=== PATIENT | male | born 1980 | race Caucasian/White ===

== ENCOUNTER 2017-05-16 11:46 | Inpatient (IN) ==
--- OUTSIDE RECORDS SUMMARY | 2017-05-16 11:55 | External Medical Summary ---
:1980 Author Organization [employer] Care Team Providers Name Role Phone Dorothy Escobar Provider Role Unavailable Allergies, Adverse Reactions, Alerts Substance Reaction Event Type aleve rash Non Drug Allergy penicillin rash Non Drug Allergy Problems Problem Type Condition Code Onset Dates Condition Status Assessment Sore throat J02.9 Active Assessment Right acute serous otitis media, H65.01 Active recurrence not specified Assessment Body aches R52 Active Medications Medication Code Code Instructions Start End Date Status Dosage System Date Azithromycin UTC 12994-17 250 MG Orally Feb 15, Feb 20, 2 tablets 46-09 Once a day 2015 2015 on the first day, then 1 tablet daily for 4 days BuPROPion HCl [facility] 83431-61 150 MG Orally Jan 09, 1 tablet (SR) 15- one a day for 2015 one week, then twice a day Procedures Procedure Coding System Code Date OFFICE VISIT, EST-LOW COMPLEXITY (15 MIN.) CPT-4 66489 Feb 16, 2016 Vital Signs Date/Time: Feb 16, 2016 Temperature 98.3 F Height 71 in Weight 331 lbs Blood Pressure Diastolic 84 mm Hg Blood Pressure Systolic 126 mm Hg Cardiac Monitoring Heart Rate 86 /min BMI 46.16 Index Respiratory Rate 16 /min Results No Known Results Summary Purpose [employer] Submission
[2017-05-16 12:09] VITALS: BMI 48.4
[2017-05-16] MEDS: LR 1,000 ML IV SCH ×3 (12:25→20:34)
--- NOTE | 2017-05-16 13:35 | Anesthesia Preoperative Report ---
Anesthesia Preoperative Record - Date and Time Date: 05/16/17 Preoperative Diagnosis: Ventral hernia repair K43.6 ventral hernia Proposed Procedure: robotic assisted ventral hernia NPO Since Date: 05/15/17 NPO Since Time: 23:00 Allergies/Adverse Reactions: Allergies Allergy/AdvReac Type Severity Reaction Status Date / Time naproxen Allergy Severe RASH Verified 05/16/17 12:46 Penicillins Allergy Unknown RASH Verified 05/16/17 12:46 - Vital Signs Vital Signs: Temperature 98.4 F 05/16/17 12:07 Pulse Rate 81 05/16/17 12:16 Respiratory Rate 15 05/16/17 12:07 Blood Pressure 149/79 H 05/16/17 12:07 Pulse Oximetry 96 05/16/17 12:07 Height and Weight: Height 1.8 m Weight 157.6 kg Body Mass Index 48.4 - Medications Inpatient Medications: Current Medications Ertapenem 1 g/ Sodium Chloride 100 mls @ 200 mls/hr IV PREOP ONE Stop: 05/16/17 16:09 Lactated Ringer's (Lactated Ringers) 1,000 mls @ 50 mls/hr IV .Q20H LEONARD Last Admin: 05/16/17 12:25 Dose: 50 mls/hr Lidocaine HCl (Xylocaine-Mpf 1% Vial) 1 mg ID O ONE Stop: 05/16/17 15:37 Last Admin: 05/16/17 12:33 Dose: Not Given Home Medications: Home Medications Medication Instructions Recorded Confirmed Type No known Home medications [No home 05/16/17 05/16/17 History meds] - Medical History Respiratory: Reports: Sleep Apnea (not diagnosed ) Cardiovascular: Reports: Hypertension (NO MEDS TAKEN) Gastrointestional: Reports: Morbid Obesity Neuro/Musculoskeletal: Reports: Other (POSS CARPAL TUNNEL ON LEFT HAND) - Surgical History HEENT Surgeries: Reports: Tonsillectomy GI Surgery/Treatments: Reports: Appendectomy, Hernia Repair (VENTRAL HERNIA) Musculoskeletal Surgery/Tx: Reports: Knee Arthroscopy (RIGHT) Anesthesia Reactions: None Hx Family Anesthesia Reaction: No - Social History Smoking Status: Former smoker - Pertinent Findings EKG: Sinus Rhythm - Physical Exam Respiratory Exam: Present: lungs clear, bilateral breath sounds equal Cardiovascular Exam: Present: regular rate and rhythm, no murmur - Airway Assessment Mallampati Score: II TMD: 3 Fingerbreadths Neck Extension: good Teeth: poor dentation Overall Assessment: may be difficult mask vent, may be difficult intubation Overall Assessment: casi dial - ASA ASA Score: 3 - Plan Anesthesia: General Inhalation Gases - Discussion Discussion: Discussed risks/options/alternatives of anesthesia and questions answered. Patient consents. Nursing pain assessment noted. Attestation Statement: Prior to the delivery of any anesthetic medication, I examined the patient, developed the plan, obtained the patient's consent and discussed the risk and benefits of the procedure with the patient/guardian. - Additional Information Seen by Anesthesia: Yes
[2017-05-16] MEDS ORDERED: KETAMINE 500 MG/10 ML INJECTION ONE (13:43)
[2017-05-16] MEDS ORDERED: FentaNYL 100 MCG/2 ML INJECTION ONE ×2 (13:43→17:43)
[2017-05-16] MEDS ORDERED: ROCURONIUM 50 MG/5 ML INJECTION IVP ONE ×2 (13:45→16:54)
[2017-05-16] MEDS ORDERED: PROPOFOL 20 ML ONE ×2 (13:45→18:15)
[2017-05-16] MEDS ORDERED: LIDOCAINE 1% (10mg/ml) 2mL INJ PF SDV ID ONE (15:36)
[2017-05-16] MEDS ORDERED: ERTAPENEM 1 G in NS 100 ML IV ONE (15:40)
[2017-05-16] MEDS ORDERED: BUPIVACAINE 0.25%/EPI 1:200,000 30ml SDV ID ONE (17:15)
[2017-05-16] MEDS ORDERED: ONDANSETRON 4 MG/2 ML INJECTION ONE (17:33)
[2017-05-16] MEDS ORDERED: SUGAMMADEX 200mg/2ml INJECTION IVP ONE (17:33)
[2017-05-16] MEDS ORDERED: DiphenhydrAMINE 50 MG/ML INJECTION ONE (17:33)
--- NOTE | 2017-05-16 18:25 | General Surgery Procedure Note ---
Date of Procedure: 05/16/17 Surgeon: Yadi Sagger Maker: Romaine Shin APRN Postoperative Diagnosis: Ventral Hernia Procedure: Robotic assisted ventral hernia repair with mesh Estimated Blood Loss: See Anesthesia Record. Pathology: none sent
[2017-05-16] MEDS ORDERED: MORPHINE SULFATE 10 MG/ML VIAL ONE (18:30)
[2017-05-16] MEDS ORDERED: MORPHINE SULFATE 10 MG/ML VIAL IVP PRN (18:55)
[2017-05-16] MEDS ORDERED: DiphenhydrAMINE 50 MG/ML INJECTION IVP PRN ×2 (18:55→20:21)
[2017-05-16] MEDS ORDERED: ONDANSETRON 4 MG/2 ML INJECTION IVP PRN ×2 (18:55→20:21)
--- NOTE | 2017-05-16 19:21 | Anesthesia Postoperative Note ---
- Date and Time Date: 05/16/17 Time: 19:21 - Status Patient Participated in Evaluation: Patient Participated in Person Vital Signs: Temperature 98.5 F 05/16/17 18:49 Pulse Rate 104 H 05/16/17 19:10 Respiratory Rate 19 05/16/17 19:10 Blood Pressure 148/76 H 05/16/17 19:10 Pulse Oximetry 97 05/16/17 19:10 Respiratory Function: Airway Patent Cardiovascular Function: Regular Pulse EKG: Sinus Rhythm Mental Status: Alert and Oriented Pain Intensity: 5 Hydration: IV Infusing Complications During Recover: None Apparent - Follow-Up Instructions Instructions: Per Surgeon
[2017-05-16] MEDS ORDERED: MORPHINE SULFATE 4mg INJECTION IVP PRN (20:21)
[2017-05-16] MEDS ORDERED: METOCLOPRAMIDE 10mg/2ml INJECTION IVP PRN (20:21)
[2017-05-16] MEDS: KETOROLAC 30 MG/ML INJECTION IVP PRN (20:33)
[2017-05-17] MEDS: HYDROCODONE/APAP 5mg/325mg TABLET PO PRN ×2 (00:55→07:44)
[2017-05-17] MEDS: KETOROLAC 30 MG/ML INJECTION IVP PRN (03:00)
--- NOTE | 2017-05-17 10:08 | General Surgery Progress Note ---
Subjective Patient reports: still having pain (Pain is mid abdoment at prior hernia site, worse with coughing, pain rating 7/10. Minimal discomfort at trocar sites. Binder is very helpful for abd pain but is hot. Did not get Morphine during the night, states she asked about more pain medication and was told Toradol and [place] was all that she could give. States Toradol does not help and [place] just barely takes the edge off.), tolerating a regular diet (eating full large meals without difficulty), voiding w/o difficulty, flatus, no bowel movement, shortness of breath (was on c-pap all night, he states he will check into getting a sleep study when he gets home. He was on O2 3Lt at start of day shift , is now (10 am) on 1 lt and sat 91-92%) - Vital Signs Last Vital Signs Temp 98.6 F 05/17/17 09:26 Pulse 88 05/17/17 09:26 Resp 18 05/17/17 09:26 BP 144/81 H 05/17/17 09:26 Pulse Ox 94 05/17/17 09:26 - Laboratory Result Diagrams: 05/17/17 12:18 - Abnormal Exam General: mild distress (regarding abd pain at hernia site) Respiratory: rales (bilateral bases) Abdominal: obese - Normal Exam General: awake, alert, oriented Cardiovascular: regular rate Abdominal: appropriately tender, incision(s) (early ecchymosis at trocar and hernia sites (where the mesh "tail" pulled through the abd wall)) Psychiatric: normal affect (but anxious regarding mid abd pain.) Neurological: CN 2-12 grossly intact Assessment and Plan (1) Ventral hernia without obstruction or gangrene Current Visit: Yes Status: Resolved (2) Aspiration pneumonia due to saliva Current Visit: Yes Status: Suspected Qualifiers: Laterality: bilateral (3) Atelectasis Current Visit: Yes Status: Acute (4) Postoperative hypoxia Current Visit: Yes Status: Acute (5) Postoperative abdominal pain Current Visit: Yes Status: Acute (6) Sleep apnea in adult Current Visit: Yes Status: Suspected (7) Obesity, morbid (more than 100 lbs over ideal weight or BMI > 40) Current Visit: Yes Status: Chronic Plan: Pain not well controlled with [place], will switch to Percocet 7.5. MiraLAX daily. Rough wet cough and rales bilateral bases, will get CXR and breathing treatment , binder loosened. Bi-pap, IS and Acapella ordered last night, anticipating hypoxia. He plans on seeking sleep study after discharge. At this point does not seem interested in weight loss. If improves over the next 6 hours, he might be able to be discharged today. ADDENDUM: CXR after breathing treatment this am COMPARISON: August 15, 2015 FINDINGS: New airspace consolidation in both lower lobes. Lungs are hypoinflated. No pneumothorax or definite pleural effusion. Heart size and mediastinal contours are stable. Pulmonary vascularity is grossly normal. Impression: Hypoinflation with bibasilar airspace disease most likely representing atelectasis. Developing pneumonia cannot be excluded and continued radiographic follow-up is recommended. Based on cough, and above CXR, scheduled breathing treatment TID and prn ordered. Encouraged ambulation, IS, Acapella. Will spend the night for repeat CXR in am related to possible developing aspiration pneumonia vs atelectasis related to his hypoxia newly requiring oxygen, unless he can be weaned from oxygen and the WBC normal. ADDENDUM #2 : WBC 12.3 He was able to be weaned off oxygen while awake, but with rest/sleep dropped to 88%. Results of over night pulse ox can be sent to PCP and/or sleep medicine. Will discuss above thoughts with Dr. Machado before final decision regarding discharge. ADDENDUM #3: 7:45 pm Now needing 2Lt oxygen to maintain sat of barely 90%. He had a couple hours on room air in the afternoon when alert and awake. Given the difficulty in maintaining sats above 90 upon induction for surgery yesterday, and the suctioning that was needed when he was waking up from anesthesia, plus the productive cough now post op that he did not have pre-op, together with rales in the bases and CXR indicating possible pneumonia, There is suspicion of aspiration pneumonia. Given the clinical background and the CXR, we will keep him over night and check CBC and CXR in the am. Will hold off on ABX for now, we don't want to give him ABX if he does not need them, and if his WBC goes down tomorrow, it would be harder to determine if he had atelectasis and just an elevation in WBC as stress response, or if the decrease was truly due to ABx. Hospital Course Summary Disclaimer: The visit summary below is not to be considered part of the above Progress Note. Hospital Course: Pain not well controlled with [place], will switch to Percocet 7.5. MiraLAX daily. Rough wet cough and rales bilateral bases, will get CXR and breathing treatment , binder loosened. He plans on seeking sleep study after discharge. At this point does not seem interested in weight loss. If improves over the next 6 hours, he might be able to be discharged today.
[2017-05-17] MEDS: ALBUTEROL 2.5mg/3ml (0.083%) NEB AEROSOL PRN ×2 (10:09→18:20)
[2017-05-17] MEDS: POLYETHYL GLYCOL 3350 17gm PACKET PO SCH (10:33)
--- NOTE | 2017-05-17 11:09 | XRay Report ---
INDICATION: post op wheezing, productive cough PROCEDURE: CHEST 2-VIEWS UPRIGHT (PA & LAT) Encounter: Initial COMPARISON: August 15, 2015 FINDINGS: New airspace consolidation in both lower lobes. Lungs are hypoinflated. No pneumothorax or definite pleural effusion. Heart size and mediastinal contours are stable. Pulmonary vascularity is grossly normal. Impression: Hypoinflation with bibasilar airspace disease most likely representing atelectasis. Developing pneumonia cannot be excluded and continued radiographic follow-up is recommended. .
[2017-05-17] MEDS: OXYCODONE/APAP 7.5 MG/325 MG TABLET PO PRN ×3 (13:08→22:43)
--- NOTE | 2017-05-17 15:04 | Operative Note ---
DATE OF SERVICE 05/16/2017 SURGEON Ken Grullon MD PREOPERATIVE DIAGNOSIS Recurrent ventral hernia. POSTOPERATIVE DIAGNOSIS Incarcerated recurrent ventral hernia. ANESTHESIA General endotracheal. EBL/FLUIDS Please see chart. BRIEF HISTORY/INDICATIONS Mr. Clark is a 37-year-old gentleman who recently presented to my office as a result of onset of epigastric abdominal pain. Patient had presented to the emergency room and had undergone a CT scan that revealed evidence for an incisional hernia containing omentum. There was no evidence for strangulation or evidence for bowel obstruction. The patient, however, did have a prior history of presenting with a strangulated small bowel obstruction as a result of a prior ventral hernia. He did undergo a small bowel resection and repair of his ventral hernia. Unfortunately, the patient had a recurrence of his hernia which has become symptomatic in nature. As a result of the above indications it was recommended to the patient that he undergo repeat surgical intervention/robotic-assisted laparoscopic ventral herniorrhaphy with incorporation of mesh. Patient presents today to undergo this procedure. For completeness please refer to notes included in the patient's chart. FINDINGS Upon laparoscopy the patient was found to have a fascial defect located within the midline location. The patient's fascial defect was on the order about 2-3 cm in diameter and contained a significant amount of incarcerated omentum. This omentum was able be reduced. Primary fascial closure was subsequently performed followed by incorporation of a piece of Ventralex mesh so that it covered the defect by several centimeters circumferentially once it had been closed primarily. Otherwise, the small bowel, omentum, colon, liver edge which was visualized were within normal limits. NARRATIVE OF PROCEDURE After informed consent was obtained the patient was brought to the operative suite and placed on the table in supine fashion. Patient subsequently underwent establishment of a general anesthetic. The patient did desaturate fairly quickly during the process of intubation. The patient did take a few moments to stabilize. Once Anesthesia felt that the patient had been stabilized, attention was then directed towards his abdomen. His abdomen was prepped and draped in sterile fashion. Formal time-out was then completed. 0.25% Marcaine with epinephrine was injected just beneath the left subcostal margin. A 4-5 mm incision was made through the area of analgesia. Veress needle was then induced through the small incision into the peritoneal cavity. Pneumoperitoneum was established to a patient pressure of 15 mmHg utilizing carbon dioxide. The operative bed was then slightly flexed and the patient was rotated slightly towards his right. A point midway between the left anterior iliac spine and the left subcostal margin was then injected with 0.25% Marcaine with epinephrine along the mid anterior axillary line. A 2-cm incision was made overlying the of analgesia. A 12-mm camera port was then placed overlying an 8-mm camera and placed through the incision and subsequently advanced under direct visualization through the underlying fascial layers and into the peritoneal cavity. Camera was then removed. Trocar was removed. A 12 -mm was then replaced through the camera port. Next, an additional 8-mm port was then placed in the left low left lower quadrant as well as an additional 10- mm assist port through within the left upper quadrant. Each port site was preinjected with 0.25% Marcaine with epinephrine and placed under direct visualization. The abdominal cavity was explored via the laparoscope. Findings were as noted above. Robot was then docked perpendicular to the patient's right. I then proceeded to go to the console. The patient was found to have a considerable amount of omentum incarcerated through a small fascial defect within the upper mid abdomen. This fascial defect was located at the midline location. A fair amount of time was spent reducing this incarcerated omentum. The omentum was able to be completely dissected out of the fascial defect/ hernia sac. Next, a #1 V-Loc suture was then placed through the assist port within the left upper quadrant. The fascial defect was then closed primarily in a running fashion. Initially, the fascial defect was closed in a "left-to- right fashion" and then subsequently oversewn in a "[id number]-[id number]-[id number] fashion" completely. Suture was tightened sequentially, resulting in nice imbrication of the fascial edges. Next, I had my paraprofessional education assistant then place a Ventralex ST hernia patch through the assist port within the left upper quadrant. The tail portions of the mesh had been transected. Vicryl suture was placed along the midportion of the Ventralex mesh. The paraprofessional education assistant then placed a laparoscopic needle passer through the anterior abdominal wall overlying the location of the fascial defect. The suture passer was placed through the midportion of the primary closure. The Vicryl was then grasped and retracted through the anterior abdominal wall until the large Ventralex ST hernia patch was taut against the anterior abdominal wall. The hernia patch was placed in such a fashion that it covered the closure of the fascial defect by several centimeters circumferentially. The mesh was then imbricated to the anterior abdominal wall in a running fashion utilizing a 2-0 V-Loc suture. Nallen that were utilized were removed. Instrument, sponge and needle counts were performed and found to be correct. Prior areas of dissection were inspected and found be hemostatic in nature. Next, the robot was then undocked. Camera was then placed within the assist port within the left upper quadrant. Camera port was then removed and the fascial opening at the camera port was closed in a [id number] fashion with 0-Vicryl laparoscopically utilizing a laparoscopic suture passer. Camera port was then replaced through this figure- of-eight suture and the camera was then replaced once again within the camera port. Attention was then focused to the assist port within the left upper quadrant. The assist port was then removed and this fascial opening was also closed laparoscopically in a [id number]-it-[id number] fashion with 0-Vicryl utilizing a laparoscopic suture passer. Suture was then tied securely, resulting in a nice closure of the port site at the fascial level. The remaining 8-mm port was then removed. Camera port was then removed once the pneumoperitoneum had been completely released. Previously placed [id number] suture of 0-Vicryl was then tied securely, resulting in imbrication of the fascia. All skin incisions were closed in a subcuticular fashion with 4-0 Monocryl. The patient is in the process of awakening from his anesthetic and will be sent back to the recovery room once deemed in stable condition. RUDOLPH
[2017-05-17] MEDS: IBUPROFEN 600 MG TABLET PO PRN ×2 (15:12→21:07)
[2017-05-18] MEDS: OXYCODONE/APAP 7.5 MG/325 MG TABLET PO PRN ×4 (03:47→18:09)
[2017-05-18] MEDS: IBUPROFEN 600 MG TABLET PO PRN ×2 (06:10→23:15)
[2017-05-18] MEDS: ALBUTEROL 2.5mg/3ml (0.083%) NEB AEROSOL PRN (06:55)
[2017-05-18] MEDS ORDERED: Bisacodyl EC TAB 5 MG TABLET PO ONE (08:12)
--- NOTE | 2017-05-18 08:23 | General Surgery Progress Note ---
Subjective Patient reports: feels better, pain is less (Motrin 600 mg Q6 has been helpful, and he states the Percoet 7.5 is much better at pain relief than [place]. He currently is "past due" for another Percocet, but feels that his abd pain is about a 4/10 and will hold off on the Percocet.), tolerating a regular diet ( had pancakes and syrup for breakfast), voiding w/o difficulty, no bowel movement (but states he feels like he will have a BM soon.), shortness of breath (with productive cough. RT Summary indicates Deepest desat felisa of 81% with total desats 11 (1.3 hr). ) - Vital Signs Last Vital Signs Temp 96.8 F 05/18/17 04:00 Pulse 81 05/18/17 04:00 Resp 22 05/18/17 06:55 BP 145/71 H 05/18/17 04:00 Pulse Ox 94 05/18/17 06:55 - Laboratory Result Diagrams: 05/18/17 08:36 - Abnormal Exam Respiratory: wheezes (faint wheeze, much much improved from yesterday), other ( Remains on O2 this morningRT eval reports sats fallint to 87% with ambulation of only 120 ft, O2 started at 2L and sat initially continued to fall to a low of 85% on 2L. After returing to bed appx. 4 min before dips and peaks calmed with pt. remaining at 91-92% on 2L. ) Cardiovascular: other (brief tachycardia during oximetry testing, RT notes HR 101 at one point.) Abdominal: obese - Normal Exam General: awake, alert, oriented Cardiovascular: regular rate Abdominal: appropriately tender, no guarding, incision(s) (early ecchymosis, no sign of infection) Psychiatric: normal affect Assessment and Plan (1) Ventral hernia without obstruction or gangrene Current Visit: Yes Status: Resolved (2) Aspiration pneumonia due to saliva Current Visit: Yes Status: Suspected Qualifiers: Laterality: bilateral (3) Atelectasis Current Visit: Yes Status: Acute (4) Postoperative hypoxia Current Visit: Yes Status: Acute (5) Postoperative abdominal pain Current Visit: Yes Status: Acute (6) Sleep apnea in adult Current Visit: Yes Status: Suspected (7) Obesity, morbid (more than 100 lbs over ideal weight or BMI > 40) Current Visit: Yes Status: Chronic Plan: WBC up a little to 13.1 (12.3 yesterday) Still has productive cough, sputum culture ordered. Sats dropping during the night at with ambulation, RT has done a good assessment , see RT NOTE. Pain is better controlled with Percocet and Motrin. Reviewer for IP called me last evening and given suspicion of possible aspiration pneumonia in addition to previously undiagnosed sleep apnea and morbid obesity, she recommended IP status about 5pm yesterday. CM is checking on fischer of Levaquin 750 PO, as Don's insurance does not cover OP drugs very well. Above info reported to Dr. Aden, will ask hospitalist team to assist with evaluation and options. Hospital Course Summary Disclaimer: The visit summary below is not to be considered part of the above Progress Note. Hospital Course: 05/17/2017 POD #1 Pain not well controlled with [place], will switch to Percocet 7.5. MiraLAX daily. Rough wet cough and rales bilateral bases, will get CXR and breathing treatment , binder loosened. He plans on seeking sleep study after discharge. At this point does not seem interested in weight loss. Continued to need O2 most of the day, CXR suggestive of either atelectasis or pneumonia. CBC showed WBC 12.3 . 05/18/2016 POD #2 WBC up a little to 13.1 (12.3 yesterday) Still has productive cough, sputum culture ordered. Sats dropping during the night at with ambulation, RT has done a good assessment , see RT NOTE. Pain is better controlled with Percocet and Motrin. Reviewer for IP called me last evening and given suspicion of possible aspiration pneumonia in addition to previously undiagnosed sleep apnea and morbid obesity, she recommended IP status about 5pm yesterday. CM is checking on fischer of Levaquin 750 PO, as Don's insurance does not cover OP drugs very well. Above info reported to Dr. Aden, will ask hospitalist team to assist with evaluation and options.
[2017-05-18] MEDS: POLYETHYL GLYCOL 3350 17gm PACKET PO SCH (09:12)
--- NOTE | 2017-05-18 11:44 | Consult Note ---
Consult Information - Data of Consult Consult date: 05/18/17 Requesting Physician: Ken Grullon MD Primary Care Provider: Cindy Bravo APRN Family Provider: Cindy Bravo APRN - Consult Narrative Reason for consult: Acute respiratory failure with hypoxia, s/p hernia repair History of present illness: Bashir Clark is a pleasant 37-year-old patient of Dr. Cindy Bravo who underwent elective robotic-assisted laparoscopic ventral herniorrhaphy with mesh placement on 05/16/[address] Grullon. Since his surgery, he has had acute respiratory failure with hypoxia and tachypnea requiring oxygen supplementation at 2L. He reports that prior to his surgery, he and all of his family members had battled a "cold" with mild cough and congestion off and on over the past couple of months. He also admits to self-diagnosed sleep apnea but does not use oxygen or CPAP at home. Surgery reports that he was a very difficult intubation in light of his morbid obesity, placing him at significant risk for respiratory complications. CXR was obtained on 05/16/17 and revealed hypoinflation with bibasilar airspace disease which could represent atelectasis or pneumonia. Labs on 05/17/17 revealed leukocytosis with WBC at 12.3. Ambulatory oximetry revealed hypoxia with oximetry as low as 85% on room air, which improved with 2L NC and rest. Due to his persistent respiratory failure with hypoxia and leukocytosis, the hospitalist service was consulted for further evaluation and medical management. On exam, he is seen while sitting in his recliner with his at the bedside. He reports that he is feeling a little better today. He states that his cough has become more productive with yellow-greenish sputum but remains afebrile without chills. He is currently breathing easily on room air with a reported oximetry of 90% but is noted to become more dyspneic with mild conversational dyspnea with exertion. He has a wet, productive cough and lung sounds reveal course breath sounds with decreased air movement in the right lower lung. He denies any other complaint or concerns. His pain is well controlled. Appetite is good but no bowel movement since surgery, though he admits to passing gas. Past Medical History Patient Stated Medical History Hypertension - no current medications. Sleep apnea - self reported. Carpal tunnel, left. History of substance abuse with methamphetamine and marijuana. Morbid obesity with BMI >45. Poor dentition. Former smoker. Surgical History: Appendectomy - ~1987. Right knee scope - ~1997. Umbilical hernia repair - 05/24/2013. Ventral hernia repair - 05/16/17, Dr. Grullon. Family History Updates: Mother - alive, age 67 - DM, hypertension, CAD with stent placement. Father - alive, age 74 - estranged, possible hypertension. - Social History Smoking status: Former smoker (quit 1 years ago) Packs per day: 1 Packs-years: 15 Substance use type: former substance user (quit 2 years ago - marijuana and methamphetamine) Alcohol intake: former Alcohol intake frequency: former alcohol drinker (quit 5 years ago) Housing: house Household members: spouse, children Current occupational status: disabled Does patient use chewing tobacco?: No Current residence: Apartment/Private Home Social history: PCP - Dr. Cindy Bravo. Surg - Dr. Grullon. Review of Systems All systems PM: 10-point ROS was reviewed, no additional remarkable complaints except - Constitutional Constitutional: Absent: chills, fever(s), headache(s), weakness - EENMT Eyes: Absent: diplopia, photophobia Ears: Absent: ear pain Balance: Absent: falling to one side Nose: Absent: nosebleeds Mouth/Throat: Present: caries, dry mouth. Absent: sore throat, changes in swallowing EENMT Comments: poor dentition. - Cardiovascular Cardiovascular: Present: dyspnea on exertion, orthopnea. Absent: chest pain, palpitations, syncope Vascular: Absent: pallor of an extermity, pedal edema - Respiratory Respiratory: Present: cough, dyspnea, dyspnea on exertion, chest congestion, excessive phlegm production. Absent: hemoptysis, pain on inspiration - Gastrointestinal Gastrointestinal: Present: abdominal pain (secondary to recent surgery.), constipation. Absent: melena, nausea, vomiting - Genitourinary Genitourinary: Absent: dysuria, flank pain, hematuria - Musculoskeletal Musculoskeletal: Absent: abnormal gait, deformity - Integumentary/Breasts Integumentary: Absent: rash - Neurological Neurological: Absent: abnormal speech, confusion, dizziness, focal weakness, headache(s), weakness - Psychiatric Psychiatric: Absent: anxiety, depression - Endocrine Endocrine: Absent: heat intolerance, palpitations - Hematologic/Lymphatic Hematologic/Lymphatic: Absent: easy bruising - Allergic/Immunologic Allergic/Immunologic: Absent: seasonal rhinorrhea Medications Allergies Allergy/AdvReac Type Severity Reaction Status Date / Time naproxen Allergy Severe RASH Verified 05/18/17 19:50 Penicillins Allergy Unknown RASH Verified 05/18/17 19:50 Exam Vital Signs: Temperature 98.2 F 05/18/17 08:56 Pulse Rate 104 H 05/18/17 08:56 Respiratory Rate 24 05/18/17 08:56 Blood Pressure 145/79 H 05/18/17 08:56 Pulse Oximetry 92 05/18/17 08:56 Telemetry Rhythm: Sinus Tachycardia Height/Weight/BMI: Height 5 ft 11 in Weight 347 lb 0.121 oz Body Mass Index 48.4 Comments: Sitting in recliner with at bedside. - Constitutional Present: no acute distress, well nourished, well developed, morbidly obese, cooperative - Routine HEENT Exam Head: Present: normocephalic, atraumatic Eye: Present: PERRL. Absent: conjunctival icterus ENT: Present: mucous membranes moist Comments: very poor dentition. - Routine Neck Exam Present: supple, full ROM, trachea midline - Routine Chest/Breast/Axilla Exam Chest wall: Absent: pacemaker - Routine Respiratory Exam Absent: wheezes Comments: diminished and course breath sounds to right lower lung; wet, productive cough on exam; dyspnea noted with minimal exertion. - Routine Cardiovascular Exam Present: RRR, S1, S2 - Routine Abdominal Exam Present: soft. Absent: rebound, guarding Comments: hypoactive bowel sounds; mild tenderness with palpation. - Routine Extremities Exam Present: edema, non tender, full ROM, pulses intact - Routine Back/Spine/Pelvis Exam Back/Spine: Present: full ROM. Absent: vertebral tenderness - Routine Skin Exam Present: dry, warm. Absent: jaundice Comments: afebrile. - Routine Neurological Exam Present: alert, oriented X3, CN II-XII intact, moving all extremities, hearing grossly intact, normal speech. Absent: facial asymmetry - Routine Psychiatric Exam Present: tactile hallucinations, cooperative, good insight, good judgment Results - Labs CBC & Chem 7: 05/18/17 08:36 05/18/17 08:36 Microbiology Results: Microbiology 05/18/17 09:27 Sputum, Expectorated Sputum Culture - Preliminary Culture Initiated - Results Pending Assessment and Plan (1) Status post hernia repair Current visit: Yes Status: Acute (2) Acute respiratory failure with hypoxia and hypercapnia Current visit: Yes Status: Acute (3) Obesity, morbid (more than 100 lbs over ideal weight or BMI > 40) Current visit: Yes Status: Chronic Assessment and Plan: Assessment S/P ventral hernia repair - 05/16/17, Dr. Grullon. Acute post-op respiratory failure with hypoxia and hypercapnia. Aspiration pneumonia - NEW ADMISSION. Severe sepsis as indicated by leukocytosis, tachycardia, tachypnea and hypoxia. Leukocytosis. Post-op abdominal pain. Hypertension - no current medications. Sleep apnea - self reported. Carpal tunnel, left. History of substance abuse with methamphetamine and marijuana. Morbid obesity with BMI >45. Poor dentition. Former smoker. Plan - 05/18/17 Hospitalist service consulted for medical management and further evaluation of acute post-op respiratory failure with hypoxia and hypercapnia. Patient meeting severe sepsis criteria. Will obtain blood cultures x 2 and serial lactates. Initiate Levaquin 750mg IV daily for suspected aspiration pneumonia. Monitor WBC as it is trending up - currently 13.1. Initial exam reveals course lung sounds in right lower lung. Ambulatory oximetry revealed hypoxia on room air as low as 85% and improved with 2L O2 and rest. CXR on 05/16 concerning for bibasilar atelectasis vs. pneumonia. Sputum culture obtained with results pending. Continue to monitor culture results. Continue supplemental oxygen to maintain SAO2 >90%, weaning as able. Continue to encourage incentive spirometry for pulmonary toileting. DuoNeb treatments for dyspnea. Mucinex for mucolytic effect. Ricola and tessalon perles for cough PRN. Continue to monitor closely on telemetry with continuous pulse oximetry. Blood pressure noted to be elevated. History of hypertension without current blood pressure medications. GFR stable. In light of diabetes, will initiate lisinopril 10mg daily and continue to monitor closely. SCDs for DVT prophylaxis. Encourage ambulation with assistance as able. Upon discharge, patient's care will be returned to his PCP, Dr. Bravo. Appreciate the opportunity to assist in the care provided. 05/18/2017-9 PM-Dr. Bull-I reviewed this chart, the patient history, and the MANAGER OF TAX's/PA's documented findings as above. We discussed and formulated the assessment and plan as above with the additions below. I saw the patient this afternoon in his room. He did have a productive cough. He states he's had green yellow phlegm. This started after surgery. He apparently had a difficult intubation and required suctioning and bagging before intubation and then required suctioning after he was extubated. We were consulted today for hypoxia. He is requiring 1-2 L of oxygen. ABG reveals a pH of 7.45, PCO2 38, PO2 of 65 on 1 L. Lactate was normal 2. Influenza A and B are negative. Rhinovirus is negative. He had an overnight oximetry last night and requires 2 L of oxygen. This afternoon he states he's feeling sweaty and has had a temperature of around 100.5. He's had some mild tachycardia. He is not orthostatic. He states he does snore loudly at night and sometimes wakes up gasping for air. He thinks he likely has sleep apnea. He has never been tested for sleep apnea. He rates his pain in his abdomen postoperatively to be about a 3 currently In general this is a well-developed, overweight male in no acute distress. He is mildly diaphoretic. HEENT reveals sclerae to be anicteric and pupils are equal. Oropharynx is moist. Neck is supple. Chest reveals some mild rhonchi in the bases. Cardiovascular reveals a regular rate and rhythm. Abdomen is soft with some tenderness to palpation. Bowel sounds are present. Extremities are free of edema. I have viewed the chest x-ray and he does appear to have bibasilar infiltrates. Impression Acute hypoxic respiratory failure Bibasilar infiltrates with concerns for aspiration just pre-and post extubation. Possible aspiration pneumonia. Possible severe sepsis with normal lactates. Probable obstructive sleep apnea. Morbid obesity. Postop day 2 status post hernia repair Plan The patient was given IV fluids. He was not orthostatic. Lactates were normal. IV fluids were then discontinued. The patient was started on Levaquin 750 mg once daily and clindamycin 450 mg by mouth 3 times a day for pneumonia with possible aspiration. We'll await sputum culture results. At cultures were obtained and are pending. We'll continue breathing treatments and encourage incentive spirometer. ABG does not show CO2 retention. The patient will likely need O2 at 2 L at night at discharge. He will need a formal sleep evaluation with a bolt man after discharge. DVT Prophylaxis: SCD's Resuscitation Status: Full Code - Time spent with patient Time with patient PN: 70 minutes - Physician Narrative Physician: Tala Bull MD Narrative: Date: 05/18/17 Time: 1119 Hospital Course Summary Disclaimer: The visit summary below is not to be considered part of the above Progress Note. Hospital Course: Pain not well controlled with [place], will switch to Percocet 7.5. MiraLAX daily. Rough wet cough and rales bilateral bases, will get CXR and breathing treatment , binder loosened. He plans on seeking sleep study after discharge. At this point does not seem interested in weight loss. If improves over the next 6 hours, he might be able to be discharged today. Plan - 05/18/17 Hospitalist service consulted for medical management and further evaluation of acute post-op respiratory failure with hypoxia and hypercapnia. Patient meeting severe sepsis criteria. Will obtain blood cultures x 2 and serial lactates. Initiate Levaquin 750mg IV daily for suspected aspiration pneumonia. Monitor WBC as it is trending up - currently 13.1. Initial exam reveals course lung sounds in right lower lung. Ambulatory oximetry revealed hypoxia on room air as low as 85% and improved with 2L O2 and rest. CXR on 05/16 concerning for bibasilar atelectasis vs. pneumonia. Sputum culture obtained with results pending. Continue to monitor culture results. Continue supplemental oxygen to maintain SAO2 >90%, weaning as able. Continue to encourage incentive spirometry for pulmonary toileting. DuoNeb treatments for dyspnea. Mucinex for mucolytic effect. Ricola and tessalon perles for cough PRN. Continue to monitor closely on telemetry with continuous pulse oximetry. Blood pressure noted to be elevated. History of hypertension without current blood pressure medications. GFR stable. In light of diabetes, will initiate lisinopril 10mg daily and continue to monitor closely. SCDs for DVT prophalyxis. Encourage ambulation with assistance as able. Upon discharge, patient's care will be returned to his PCP, Dr. Bravo. Appreciate the opportunity to assist in the care provided. Sepsis Assessment - Evaluation SIRS Criteria: pulse > 90 beats/minute, WBC > 12,000, RR > 20
--- NOTE | 2017-05-18 11:49 | Progress Note ---
DATE OF VISIT 05/17/2017 REASON FOR VISIT Covering surgical care for Dr. Grullon. SUBJECTIVE Bashir was having some hypoxemia and sats were dropping below 90 while he was sleeping. He is able to maintain oxygen saturations while awake and ambulating but not with sleep. He is tolerating his diet. OBJECTIVE ABDOMEN: Soft, appropriately tender. His incisions are clean, dry and intact. IMPRESSION 1. Postop day #1 status post ventral hernia repair. 2. Acute postoperative hypoxia. 3. Atelectasis - I think this is more likely than aspiration pneumonia. 4. Obesity with BMI of 48.4. PLAN 1. I encouraged incentive spirometer use. 2. I do think that with the hypoxemia he should be observed overnight. This is only due to atelectasis. Hopefully his O2 requirements can be weaned. 3. If he continues to have hypoxia tomorrow then he may need initiation of antibiotics but I am hopeful that this is simply atelectasis as opposed to any aspiration pneumonia. See electronic documentation by Romaine Shin APRN. I do agree with her documentation. RUDOLPH
[2017-05-18] MEDS ORDERED: ALBUTEROL/IPRATROPIUM 2.5mg-0.5mg/3ml NEB AEROSOL PRN (12:08)
[2017-05-18] MEDS ORDERED: MENTHOL COUGH DROPS (RICOLA) MM PRN (12:09)
[2017-05-18] MEDS ORDERED: BENZONATATE 200 MG CAPSULE PO PRN (12:09)
[2017-05-18] MEDS ORDERED: NS 1,000 ML IV SCH (12:15)
[2017-05-18] MEDS: LISINOPRIL 10 MG TABLET PO SCH (13:22)
[2017-05-18] MEDS: GUAIFENESIN LA 600 MG TABLET PO SCH ×2 (13:24→20:21)
[2017-05-18] MEDS: LEVOFLOXACIN PB 750 MG/150 ML BAG IV SCH (13:25)
[2017-05-18] MEDS: SALINE FLUSH 10ml SYRINGE IV PRN (13:29)
--- NOTE | 2017-05-18 15:07 | XRay Report ---
Indication: atelectasis vs pneumonia PROCEDURE: XR chest 2V: Encounter: Initial Comparison: 05/17/2017 Findings: There is persistent bibasilar pulmonary opacity in the posterior inferior dependent aspect of both lung bases likely representing atelectasis although superimposed pneumonia cannot completely be excluded. No definite pleural effusion. Heart size is normal. Impression: Relatively stable bibasilar atelectasis and/or pneumonia, similar to prior exam without definite pleural effusion. .
[2017-05-18] MEDS: LACTOBACILLUS (15B cfu) CAPSULE PO SCH (18:08)
[2017-05-18] MEDS: CLINDAMYCIN 150 MG CAPSULE PO SCH ×2 (18:08→20:21)
[2017-05-19] MEDS: OXYCODONE/APAP 7.5 MG/325 MG TABLET PO PRN ×3 (00:42→18:09)
[2017-05-19] MEDS: ALBUTEROL/IPRATROPIUM 2.5mg-0.5mg/3ml NEB AEROSOL SCH ×6 (04:46→20:45)
[2017-05-19] MEDS: IBUPROFEN 600 MG TABLET PO PRN ×2 (08:41→20:00)
[2017-05-19] MEDS: LISINOPRIL 10 MG TABLET PO SCH (08:42)
[2017-05-19] MEDS: POLYETHYL GLYCOL 3350 17gm PACKET PO SCH (08:42)
[2017-05-19] MEDS: LACTOBACILLUS (15B cfu) CAPSULE PO SCH ×3 (08:45→17:32)
[2017-05-19] MEDS: CLINDAMYCIN 150 MG CAPSULE PO SCH ×3 (08:45→20:00)
[2017-05-19] MEDS: GUAIFENESIN LA 600 MG TABLET PO SCH ×2 (08:47→19:59)
[2017-05-19] MEDS: SALINE FLUSH 10ml SYRINGE IV PRN ×2 (08:48→12:03)
--- NOTE | 2017-05-19 10:16 | Progress Note ---
- Date 05/19/17 Subjective: Bashir is seen today in follow up. Reports that SOA is slightly better. His main c/o is still no BM. He has taken laxatives w/o effect, but feels things are "moving." +Flatus. Eating well. No N/V. Trying to use non-narcotic meds for pain, but is not able to bear down with BM due to pain. Is also avoiding the abdominal binder due to concerns for respiratory limitations. We discussed that he may need to use the binder intermittently in order to provide support/pain control with trips to the bathroom. He denies any other concerns. Reports no LE edema, does not feel that he is swollen. Mild increase in pain at incisions with attempts to decrease narcotic meds. Objective Vital signs: Temperature 96.8 F 05/19/17 07:24 Pulse Rate 101 H 05/19/17 07:24 Respiratory Rate 24 05/19/17 07:24 Blood Pressure 153/73 H 05/19/17 07:24 Pulse Oximetry 93 05/19/17 07:24 Height/Weight/BMI: Height 1.8 m Weight 160.8 kg Body Mass Index 48.4 - Constitutional Present: no acute distress, well nourished, well developed, morbidly obese, cooperative - Routine HEENT Exam Head: Present: normocephalic, atraumatic Eye: Present: EOMI, PERRL ENT: Absent: dentition normal - Routine Respiratory Exam Present: decreased breath sounds, diminished air movement (Bases, very mild splinting in bases. No crackles or wheezes. ). Absent: respiratory distress - Routine Cardiovascular Exam Present: RRR, S1, S2, no murmur - Routine Abdominal Exam Present: soft, tenderness, distended, surgical scars. Absent: normoactive bowel sounds (Hypoactive BS. ), firm, rigid - Routine Extremities Exam Present: no edema (Very trace edema if any at all. ), non tender, pulses intact. Absent: calf tenderness, Omero's sign - Routine Musculoskeletal Exam Musculoskeletal: Present: no clubbing or cyanosis, normal strength. Absent: joint swelling, limited range of motion - Routine Skin Exam Present: intact, dry, warm - Routine Neurological Exam Present: alert, oriented X3, CN II-XII intact, moving all extremities - Routine Psychiatric Exam Present: normal affect, normal thought process, cooperative, good insight, good judgment Results - Labs CBC & Chem 7: 05/19/17 04:26 05/19/17 04:26 Microbiology Results: Microbiology 05/18/17 09:27 Sputum, Expectorated Gram Stain - Final 05/18/17 09:27 Sputum, Expectorated Sputum Culture - Preliminary No Growth After 1 Day 05/18/17 12:27 Peripheral/Iv Start Blood Culture - Preliminary Culture Initiated - Results Pending 05/18/17 12:30 Peripheral/Iv Start Blood Culture - Preliminary Culture Initiated - Results Pending Cultures reviewed by me. - ABG Interpretation ABG results: 05/18/17 17:00 ABG pH 7.450 ABG pCO2 38 ABG pO2 65 L ABG HCO3 26 ABG Total CO2 27.6 H ABG O2 Saturation 93.0 L ABG Base Excess 2.4 H - Imaging and Cardiology Chest x-ray Status: image reviewed by me Additional comments: Impression: Relatively stable bibasilar atelectasis and/or pneumonia, similar to prior exam without definite pleural effusion. . Assessment and Plan (1) Acute respiratory failure with hypoxia and hypercapnia Current visit: Yes Status: Acute (2) Status post hernia repair Current visit: Yes Status: Acute (3) Obesity, morbid (more than 100 lbs over ideal weight or BMI > 40) Current visit: Yes Status: Chronic Assessment and Plan: Assessment S/P ventral hernia repair - 05/16/17, Dr. Grullon. Acute post-op respiratory failure with hypoxia and hypercapnia. Aspiration pneumonia - NEW ADMISSION. Severe sepsis as indicated by leukocytosis, tachycardia, tachypnea and hypoxia. Leukocytosis. Post-op abdominal pain. Hypertension - no current medications. Sleep apnea - self reported. Carpal tunnel, left. History of substance abuse with methamphetamine and marijuana. Morbid obesity with BMI >45. Poor dentition. Former smoker. Plan - 05/19/17 Some improvement in pulmonary status. Continue Levaquin/Clindamycin. Continue nebs, O2. He will need overnoc oximetry prior to dismissal and outpatient f/u for possible sleep apnea. Flu A/B is negative. Continue I.S. Continue lisinopril for HTN. Monitor, may need to add a diuretic if continues. PRN laxatives pre surgery team. Consider adding LMWH to SCDs given morbid obesity. Repeat labs in AM. DVT Prophylaxis: SCD's Resuscitation Status: Full Code - Physician Narrative Physician: Tala Bull MD Narrative: Date: 05/19/17 Time: 4:30 PM-I reviewed this chart, the patient history, and the OILER HELPER's/PA's documented findings as above. We discussed and formulated the assessment and plan as above with the additions below.-Dr. Bull Patient was seen this afternoon in his room accompanied by his and son. He states he's feeling a lot better. He has been off oxygen all day. He did need 2 L of oxygen last night. He has cough with productive phlegm but it is lessening. He has had no fevers or chills. He denies any pain. He is eating and drinking well. He has flatus but no bowel movement yet. He is urinating well. On exam he is alert and in no acute distress. Chest reveals decreased breath sounds throughout. Cardiac vascular reveals a regular rate and rhythm. Abdomen is soft, obese, nontender with positive bowel sounds. Extremities are free of edema. Lab is reviewed and reveals CBC and basic metabolic profile to be essentially normal. I was reviewing his chart for possible discharge and noticed he had a 9 beat run of nonsustained V. tach at 1:30 yesterday morning. Impression and plan Regarding aspiration pneumonia, I think the patient is improving. Continue Levaquin and clindamycin. Will change Levaquin to oral. Regarding hypoxia, the patient required oxygen last night but has not been hypoxic during the day today.-He will likely need home O2 at 2 L per nasal cannula at night. He likely has obstructive sleep apnea. ABG yesterday did not show CO2 retention. Regarding 9 beat run of nonsustained V. tach-we'll place on telemetry. Check magnesium and TSH. We'll check an echocardiogram. We'll consult Dr. Swenson. I did notify him today and asked if he would see the patient tomorrow. Hospital Course Summary Disclaimer: The visit summary below is not to be considered part of the above Progress Note. Hospital Course: Pain not well controlled with [place], will switch to Percocet 7.5. MiraLAX daily. Rough wet cough and rales bilateral bases, will get CXR and breathing treatment , binder loosened. He plans on seeking sleep study after discharge. At this point does not seem interested in weight loss. If improves over the next 6 hours, he might be able to be discharged today. Plan - 05/18/17 Hospitalist service consulted for medical management and further evaluation of acute post-op respiratory failure with hypoxia and hypercapnia. Patient meeting severe sepsis criteria. Will obtain blood cultures x 2 and serial lactates. Initiate Levaquin 750mg IV daily for suspected aspiration pneumonia. Monitor WBC as it is trending up - currently 13.1. Initial exam reveals course lung sounds in right lower lung. Ambulatory oximetry revealed hypoxia on room air as low as 85% and improved with 2L O2 and rest. CXR on 05/16 concerning for bibasilar atelectasis vs. pneumonia. Sputum culture obtained with results pending. Continue to monitor culture results. Continue supplemental oxygen to maintain SAO2 >90%, weaning as able. Continue to encourage incentive spirometry for pulmonary toileting. DuoNeb treatments for dyspnea. Mucinex for mucolytic effect. Ricola and tessalon perles for cough PRN. Continue to monitor closely on telemetry with continuous pulse oximetry. Blood pressure noted to be elevated. History of hypertension without current blood pressure medications. GFR stable. In light of diabetes, will initiate lisinopril 10mg daily and continue to monitor closely. SCDs for DVT prophalyxis. Encourage ambulation with assistance as able. Upon discharge, patient's care will be returned to his PCP, Dr. Bravo. Appreciate the opportunity to assist in the care provided. 05/18/2017-9 PM-Dr. Bull-I reviewed this chart, the patient history, and the OILER HELPER's/PA's documented findings as above. We discussed and formulated the assessment and plan as above with the additions below. I saw the patient this afternoon in his room. He did have a productive cough. He states he's had green yellow phlegm. This started after surgery. He apparently had a difficult intubation and required suctioning and bagging before intubation and then required suctioning after he was extubated. We were consulted today for hypoxia. He is requiring 1-2 L of oxygen. ABG reveals a pH of 7.45, PCO2 38, PO2 of 65 on 1 L. Lactate was normal 2. Influenza A and B are negative. Rhinovirus is negative. He had an overnight oximetry last night and requires 2 L of oxygen. This afternoon he states he's feeling sweaty and has had a temperature of around 100.5. He's had some mild tachycardia. He is not orthostatic. He states he does snore loudly at night and sometimes wakes up gasping for air. He thinks he likely has sleep apnea. He has never been tested for sleep apnea. He rates his pain in his abdomen postoperatively to be about a 3 currently In general this is a well-developed, overweight male in no acute distress. He is mildly diaphoretic. HEENT reveals sclerae to be anicteric and pupils are equal. Oropharynx is moist. Neck is supple. Chest reveals some mild rhonchi in the bases. Cardiovascular reveals a regular rate and rhythm. Abdomen is soft with some tenderness to palpation. Bowel sounds are present. Extremities are free of edema. I have viewed the chest x-ray and he does appear to have bibasilar infiltrates. Impression Acute hypoxic respiratory failure Bibasilar infiltrates with concerns for aspiration just pre-and post extubation. Possible aspiration pneumonia. Possible severe sepsis with normal lactates. Probable obstructive sleep apnea. Morbid obesity. Postop day 2 status post hernia repair Plan The patient was given IV fluids. He was not orthostatic. Lactates were normal. IV fluids were then discontinued. The patient was started on Levaquin 750 mg once daily and clindamycin 450 mg by mouth 3 times a day for pneumonia with possible aspiration. We'll await sputum culture results. At cultures were obtained and are pending. We'll continue breathing treatments and encourage incentive spirometer. ABG does not show CO2 retention. The patient will likely need O2 at 2 L at night at discharge. He will need a formal sleep evaluation with a manager pediatric after discharge. Plan - 05/19/17 Some improvement in pulmonary status. Continue Levaquin/Clindamycin. Continue nebs, O2. He will need overnoc oximetry prior to dismissal and outpatient f/u for possible sleep apnea. Flu A/B is negative. Continue I.S. Continue lisinopril for HTN. Monitor, may need to add a diuretic if continues. PRN laxatives pre surgery team. Consider adding LMWH to SCDs given morbid obesity. Repeat labs in AM.
[2017-05-19] MEDS: LEVOFLOXACIN PB 750 MG/150 ML BAG IV SCH (12:03)
[2017-05-19] MEDS ORDERED: METOCLOPRAMIDE 10mg/2ml INJECTION IVP PRN (16:37)
[2017-05-20] MEDS: OXYCODONE/APAP 7.5 MG/325 MG TABLET PO PRN ×3 (00:14→15:40)
[2017-05-20] MEDS: ALBUTEROL/IPRATROPIUM 2.5mg-0.5mg/3ml NEB AEROSOL SCH ×3 (06:39→15:23)
[2017-05-20] MEDS: IBUPROFEN 600 MG TABLET PO PRN ×2 (06:48→13:08)
[2017-05-20] MEDS: POLYETHYL GLYCOL 3350 17gm PACKET PO SCH (08:19)
[2017-05-20] MEDS: CLINDAMYCIN 150 MG CAPSULE PO SCH ×2 (08:20→15:37)
[2017-05-20] MEDS: LISINOPRIL 10 MG TABLET PO SCH (08:20)
[2017-05-20] MEDS: GUAIFENESIN LA 600 MG TABLET PO SCH (08:20)
[2017-05-20] MEDS: LACTOBACILLUS (15B cfu) CAPSULE PO SCH ×2 (08:21→11:48)
--- NOTE | 2017-05-20 08:42 | General Surgery Progress Note ---
Subjective Narrative: Eating a large regular breakfast. states that since he has been on Bi-Pap she has noticed he does not nod off to sleep during the day any time he sits down. He indicates he feels that he has more energy than he did prior to surgery. Still coughing, but not as much. Has not had a BM since surgery, in spite of Miralax daily and Dulcolax last week. He ordered prune juice for breakfast, will add Milk of Magnesia this am. He is not wearing the abd binder, and surgical pain is "tolerable." There was a short run of V=tach yesterday, hospitalist has asked Dr. Swenson to see him today. - Vital Signs Last Vital Signs Temp 97.0 F 05/20/17 07:52 Pulse 101 H 05/20/17 08:07 Resp 18 05/20/17 07:52 BP 138/71 05/20/17 07:52 Pulse Ox 94 05/20/17 07:52 - Laboratory Result Diagrams: 05/20/17 05:10 05/20/17 05:10 - Microbiogy Microbiology 05/18/17 09:27 Sputum, Expectorated Gram Stain - Final 05/18/17 09:27 Sputum, Expectorated Sputum Culture - Preliminary 05/18/17 12:27 Peripheral/Iv Start Blood Culture - Preliminary No Growth After 1 Day 05/18/17 12:30 Peripheral/Iv Start Blood Culture - Preliminary No Growth After 1 Day - Abnormal Exam Respiratory: other (still on 1.5 L wtih sat 94%, nursing will try to wean him down again.) Additional Abnormal Findings: 05/18/17 07:38 - Respiratory Therapy by Niko Sparks Acct Num: [id number] : 1980 Patient Age: 37 Overnight Oximetry Note This pt. amb from room towards west end of "[facility]" [place] on room air with pt. amb appx. 120 ft. before spo2 fell to 87%, 02 was started at 2 l/m as pt. amb return to room with spo2 initially continuing to fall to low of 85% before rebounding to 89% on 2 l/m when he arrived in his room. After returning to bed appx. 4 min before dips and peaks calmed with pt. remaining at 91<92% on 2 l/m. The printout of this walk is the first 5<15 minutes of his overnight oximetry tracing. In conversation with this pt., he stated he knew he needed to have a sleep study done. On placing pt. to CPAP then BIPAP, his dial is an obstacle to use of a full face mask. The time he did wear the cpap was during use of a nasal mask. If this pt. had apneas during this oximetry, they are difficult to ascertain and the need for 02 to keep spo2 >90% may appear to blunt some of any saw tooth patterns that may be seen on this oximetry. - Normal Exam General: awake, alert, oriented, no acute distress Cardiovascular: regular rate Abdominal: appropriately tender, no guarding, incision(s) (CDI, DermaBond glue in tact) Psychiatric: normal affect Assessment and Plan (1) Ventral hernia without obstruction or gangrene Current Visit: Yes Status: Resolved (2) Aspiration pneumonia due to saliva Current Visit: Yes Status: Suspected Qualifiers: Laterality: bilateral (3) Atelectasis Current Visit: Yes Status: Acute (4) Postoperative hypoxia Current Visit: Yes Status: Acute (5) Postoperative abdominal pain Current Visit: Yes Status: Acute (6) Sleep apnea in adult Current Visit: Yes Status: Suspected (7) Obesity, morbid (more than 100 lbs over ideal weight or BMI > 40) Current Visit: Yes Status: Chronic (8) Ventricular tachycardia seen on classroom monitor Current Visit: Yes Status: Acute (9) Acute respiratory failure with hypoxia and hypercapnia Current Visit: Yes Status: Acute Plan: Hypoxia continues, may need home O2. Currently on IV Levaquin and Cleocin, will change to PO for discharge at hospitalist discretion. Cardiac arrhythmia yesterday, Dr. Swenson has been consulted. Surgically he is doing well, except no BM yet in spite of Mirilax daily and dulcolax last week. Will get a little more aggressive with bowel stimulation today. May need to repeat Over Night Oximetry to document most current respiratory status after being on ABX and Bi=Pap several days. 05/18 RT note below. 05/18/17 07:38 - Respiratory Therapy by Niko Sparks Acct Num: [id number] : 1980 Patient Age: 37 Overnight Oximetry Note This pt. amb from room towards west end of "[facility]" hallway on room air with ptLance mckenzie appx. 120 ft. before spo2 fell to 87%, 02 was started at 2 l/m as pt. magaly return to room with spo2 initially continuing to fall to low of 85% before rebounding to 89% on 2 l/m when he arrived in his room. After returning to bed appx. 4 min before dips and peaks calmed with pt. remaining at 91<92% on 2 l/m. The printout of this walk is the first 5<15 minutes of his overnight oximetry tracing. In conversation with this pt., he stated he knew he needed to have a sleep study done. On placing pt. to CPAP then BIPAP, his dial is an obstacle to use of a full face mask. The time he did wear the cpap was during use of a nasal mask. If this pt. had apneas during this oximetry, they are difficult to ascertain and the need for 02 to keep spo2 >90% may appear to blunt some of any saw tooth patterns that may be seen on this oximetry. Hospital Course Summary Disclaimer: The visit summary below is not to be considered part of the above Progress Note. Hospital Course: Pain not well controlled with [place], will switch to Percocet 7.5. MiraLAX daily. Rough wet cough and rales bilateral bases, will get CXR and breathing treatment , binder loosened. He plans on seeking sleep study after discharge. At this point does not seem interested in weight loss. If improves over the next 6 hours, he might be able to be discharged today. Plan - 05/18/17 Hospitalist service consulted for medical management and further evaluation of acute post-op respiratory failure with hypoxia and hypercapnia. Patient meeting severe sepsis criteria. Will obtain blood cultures x 2 and serial lactates. Initiate Levaquin 750mg IV daily for suspected aspiration pneumonia. Monitor WBC as it is trending up - currently 13.1. Initial exam reveals course lung sounds in right lower lung. Ambulatory oximetry revealed hypoxia on room air as low as 85% and improved with 2L O2 and rest. CXR on 05/16 concerning for bibasilar atelectasis vs. pneumonia. Sputum culture obtained with results pending. Continue to monitor culture results. Continue supplemental oxygen to maintain SAO2 >90%, weaning as able. Continue to encourage incentive spirometry for pulmonary toileting. DuoNeb treatments for dyspnea. Mucinex for mucolytic effect. Ricola and tessalon perles for cough PRN. Continue to monitor closely on telemetry with continuous pulse oximetry. Blood pressure noted to be elevated. History of hypertension without current blood pressure medications. GFR stable. In light of diabetes, will initiate lisinopril 10mg daily and continue to monitor closely. SCDs for DVT prophalyxis. Encourage ambulation with assistance as able. Upon discharge, patient's care will be returned to his PCP, Dr. Bravo. Appreciate the opportunity to assist in the care provided. 05/18/2017-9 PM-Dr. Bull-I reviewed this chart, the patient history, and the DIRECTOR PACKAGING's/PA's documented findings as above. We discussed and formulated the assessment and plan as above with the additions below. I saw the patient this afternoon in his room. He did have a productive cough. He states he's had green yellow phlegm. This started after surgery. He apparently had a difficult intubation and required suctioning and bagging before intubation and then required suctioning after he was extubated. We were consulted today for hypoxia. He is requiring 1-2 L of oxygen. ABG reveals a pH of 7.45, PCO2 38, PO2 of 65 on 1 L. Lactate was normal 2. Influenza A and B are negative. Rhinovirus is negative. He had an overnight oximetry last night and requires 2 L of oxygen. This afternoon he states he's feeling sweaty and has had a temperature of around 100.5. He's had some mild tachycardia. He is not orthostatic. He states he does snore loudly at night and sometimes wakes up gasping for air. He thinks he likely has sleep apnea. He has never been tested for sleep apnea. He rates his pain in his abdomen postoperatively to be about a 3 currently In general this is a well-developed, overweight male in no acute distress. He is mildly diaphoretic. HEENT reveals sclerae to be anicteric and pupils are equal. Oropharynx is moist. Neck is supple. Chest reveals some mild rhonchi in the bases. Cardiovascular reveals a regular rate and rhythm. Abdomen is soft with some tenderness to palpation. Bowel sounds are present. Extremities are free of edema. I have viewed the chest x-ray and he does appear to have bibasilar infiltrates. Impression Acute hypoxic respiratory failure Bibasilar infiltrates with concerns for aspiration just pre-and post extubation. Possible aspiration pneumonia. Possible severe sepsis with normal lactates. Probable obstructive sleep apnea. Morbid obesity. Postop day 2 status post hernia repair Plan The patient was given IV fluids. He was not orthostatic. Lactates were normal. IV fluids were then discontinued. The patient was started on Levaquin 750 mg once daily and clindamycin 450 mg by mouth 3 times a day for pneumonia with possible aspiration. We'll await sputum culture results. At cultures were obtained and are pending. We'll continue breathing treatments and encourage incentive spirometer. ABG does not show CO2 retention. The patient will likely need O2 at 2 L at night at discharge. He will need a formal sleep evaluation with a surg nurse after discharge. Plan - 05/19/17 Some improvement in pulmonary status. Continue Levaquin/Clindamycin. Continue nebs, O2. He will need overnoc oximetry prior to dismissal and outpatient f/u for possible sleep apnea. Flu A/B is negative. Continue I.S. Continue lisinopril for HTN. Monitor, may need to add a diuretic if continues. PRN laxatives pre surgery team. Consider adding LMWH to SCDs given morbid obesity. Repeat labs in AM. 05/20/2017 POD #4 Hypoxia continues, may need home O2. Currently on IV Levaquin and Cleocin, will change to PO for discharge at hospitalist discretion. Cardiac arrhythmia yesterday, Dr. Swenson has been consulted. Surgically he is doing well, except no BM yet in spite of Mirilax daily and dulcolax last week. Will get a little more aggressive with bowel stimulation today.
[2017-05-20] MEDS ORDERED: ENOXAPARIN 40 MG/0.4 ML INJECTION SQ SCH (09:00)
--- NOTE | 2017-05-20 09:24 | Progress Note ---
DATE OF VISIT 05/18/2017 REASON FOR VISIT Covering surgical care for Dr. Grullon. SUBJECTIVE Don is currently weaned to room air. He has continued to have need of supplemental oxygen. He has also had a productive cough. His pain has been controlled and he has been using less of the Percocet and trying to use Motrin to help with pain. OBJECTIVE VITAL SIGNS: Afebrile with stable vitals currently on room air. GENERAL: The patient is awake, alert, in no acute distress. ABDOMEN: Soft, obese, appropriately tender. His incisions are clean, dry and intact. IMPRESSION 1. Postop day #2 status post robotic ventral hernia repair. 2. Obesity with BMI of 48. 3. Aspiration pneumonia. 4. Hypoxia. PLAN 1. The hospitalist service was consulted this morning to help guide treatment of his aspiration pneumonia and hypoxia. They have started him on Levaquin. 2. Continue routine postoperative care with regards to his hernia repair. 3. Observe overnight and continue to try to wean O2. Appreciate the hospitalist's input. Please also see the general surgery progress note by Romaine Shin APRN. I do agree with her documentation. MTDD
--- NOTE | 2017-05-20 09:35 | Progress Note ---
DATE OF VISIT 05/19/2017 REASON FOR VISIT Covering surgical care for Dr. Grullon. SUBJECTIVE Don is doing well. His pain has been controlled. He still has not had a bowel movement but has been passing significant flatus. He has been ambulating in the halls. He is anxious to go home. He did require up to 2 liters of oxygen last night while sleeping. He has been on room air while awake. OBJECTIVE VITAL SIGNS: Afebrile with stable vitals on room air currently but on 2 liters overnight. GENERAL: The patient is awake, alert, in no acute distress. ABDOMEN: Soft, obese, appropriately tender. His incisions are clean, dry and intact. IMPRESSION 1. Postop day #3 status post robotic ventral hernia repair. 2. Obesity with BMI of 49. 3. Aspiration pneumonia. PLAN 1. Appreciate hospitalist's input. The preliminary plan is to keep the patient overnight for additional oxygen and antibiotics. 2. He is doing well from a surgical standpoint. 3. Dr. Grullon will be returning tomorrow. RUDOLPH
[2017-05-20] MEDS ORDERED: LEVOFLOXACIN 750 MG TABLET PO SCH (11:30)
[2017-05-20 12:37] VITALS: O2SAT 94
--- NOTE | 2017-05-20 14:23 | Progress Note ---
- Date 05/20/17 Subjective: Had 9 beat of what appeared V tach reported overnight by nursing. Patient has been feeling better and is becoming anxious to discharge soon, perhaps today if he can. States feeling fine, without significant cough Objective Vital signs: Temperature 98.1 F 05/20/17 12:36 Pulse Rate 103 H 05/20/17 12:36 Respiratory Rate 20 05/20/17 12:36 Blood Pressure 133/70 05/20/17 12:36 Pulse Oximetry 94 05/20/17 12:36 Height/Weight/BMI: Height 5 ft 11 in Weight 159.4 kg Body Mass Index 48.4 Results - Labs CBC & Chem 7: 05/20/17 05:10 05/20/17 05:10 Microbiology Results: Microbiology 05/18/17 12:30 Peripheral/Iv Start Blood Culture - Preliminary No Growth After 2 Days 05/18/17 12:27 Peripheral/Iv Start Blood Culture - Preliminary No Growth After 2 Days 05/18/17 09:27 Sputum, Expectorated Gram Stain - Final 05/18/17 09:27 Sputum, Expectorated Sputum Culture - Final Haemophilus influenzae Normal Respiratory Mabel - ABG Interpretation ABG results: 05/18/17 17:00 ABG pH 7.450 ABG pCO2 38 ABG pO2 65 L ABG HCO3 26 ABG Total CO2 27.6 H ABG O2 Saturation 93.0 L ABG Base Excess 2.4 H Assessment and Plan (1) Obesity, morbid (more than 100 lbs over ideal weight or BMI > 40) Current visit: Yes Status: Chronic (2) Status post hernia repair Current visit: Yes Status: Acute (3) Acute respiratory failure with hypoxia and hypercapnia Current visit: Yes Status: Resolved (4) Chronic respiratory failure with hypoxia Current visit: Yes Status: Acute Assessment and Plan: Assessment S/P ventral hernia repair - 05/16/17, Dr. Grullon. Acute post-op respiratory failure with hypoxia and hypercapnia. Aspiration pneumonia - NEW ADMISSION. Severe sepsis as indicated by leukocytosis, tachycardia, tachypnea and hypoxia. Leukocytosis. Post-op abdominal pain. Hypertension - no current medications. Sleep apnea - self reported. Carpal tunnel, left. History of substance abuse with methamphetamine and marijuana. Morbid obesity with BMI >45. Poor dentition. Former smoker. Plan - 05/19/17 Some improvement in pulmonary status. Continue Levaquin/Clindamycin. Continue nebs, O2. He will need overnoc oximetry prior to dismissal and outpatient f/u for possible sleep apnea. Flu A/B is negative. Continue I.S. Continue lisinopril for HTN. Monitor, may need to add a diuretic if continues. PRN laxatives pre surgery team. Consider adding LMWH to SCDs given morbid obesity. Repeat labs in AM. DVT Prophylaxis: Lovenox - Physician Narrative Narrative: Reviewed his file and see that he continues to have hypoxic events while sleeping. He also falls below 87% while ambulating. Otherwise while awake, he is improving. This appears to be more chronic than acute at this point. Would consider this chronic respiratory failure at this point and believe he should have an outpatient sleep study. Date: 05/20/17 Time: 1420 Hospital Course Summary Disclaimer: The visit summary below is not to be considered part of the above Progress Note. Hospital Course: Pain not well controlled with [place], will switch to Percocet 7.5. MiraLAX daily. Rough wet cough and rales bilateral bases, will get CXR and breathing treatment , binder loosened. He plans on seeking sleep study after discharge. At this point does not seem interested in weight loss. If improves over the next 6 hours, he might be able to be discharged today. Plan - 05/18/17 Hospitalist service consulted for medical management and further evaluation of acute post-op respiratory failure with hypoxia and hypercapnia. Patient meeting severe sepsis criteria. Will obtain blood cultures x 2 and serial lactates. Initiate Levaquin 750mg IV daily for suspected aspiration pneumonia. Monitor WBC as it is trending up - currently 13.1. Initial exam reveals course lung sounds in right lower lung. Ambulatory oximetry revealed hypoxia on room air as low as 85% and improved with 2L O2 and rest. CXR on 05/16 concerning for bibasilar atelectasis vs. pneumonia. Sputum culture obtained with results pending. Continue to monitor culture results. Continue supplemental oxygen to maintain SAO2 >90%, weaning as able. Continue to encourage incentive spirometry for pulmonary toileting. DuoNeb treatments for dyspnea. Mucinex for mucolytic effect. Ricola and tessalon perles for cough PRN. Continue to monitor closely on telemetry with continuous pulse oximetry. Blood pressure noted to be elevated. History of hypertension without current blood pressure medications. GFR stable. In light of diabetes, will initiate lisinopril 10mg daily and continue to monitor closely. SCDs for DVT prophalyxis. Encourage ambulation with assistance as able. Upon discharge, patient's care will be returned to his PCP, Dr. Bravo. Appreciate the opportunity to assist in the care provided. 05/18/2017-9 PM-Dr. Bull-I reviewed this chart, the patient history, and the HEAD GREASE MAKER's/PA's documented findings as above. We discussed and formulated the assessment and plan as above with the additions below. I saw the patient this afternoon in his room. He did have a productive cough. He states he's had green yellow phlegm. This started after surgery. He apparently had a difficult intubation and required suctioning and bagging before intubation and then required suctioning after he was extubated. We were consulted today for hypoxia. He is requiring 1-2 L of oxygen. ABG reveals a pH of 7.45, PCO2 38, PO2 of 65 on 1 L. Lactate was normal 2. Influenza A and B are negative. Rhinovirus is negative. He had an overnight oximetry last night and requires 2 L of oxygen. This afternoon he states he's feeling sweaty and has had a temperature of around 100.5. He's had some mild tachycardia. He is not orthostatic. He states he does snore loudly at night and sometimes wakes up gasping for air. He thinks he likely has sleep apnea. He has never been tested for sleep apnea. He rates his pain in his abdomen postoperatively to be about a 3 currently In general this is a well-developed, overweight male in no acute distress. He is mildly diaphoretic. HEENT reveals sclerae to be anicteric and pupils are equal. Oropharynx is moist. Neck is supple. Chest reveals some mild rhonchi in the bases. Cardiovascular reveals a regular rate and rhythm. Abdomen is soft with some tenderness to palpation. Bowel sounds are present. Extremities are free of edema. I have viewed the chest x-ray and he does appear to have bibasilar infiltrates. Impression Acute hypoxic respiratory failure Bibasilar infiltrates with concerns for aspiration just pre-and post extubation. Possible aspiration pneumonia. Possible severe sepsis with normal lactates. Probable obstructive sleep apnea. Morbid obesity. Postop day 2 status post hernia repair Plan The patient was given IV fluids. He was not orthostatic. Lactates were normal. IV fluids were then discontinued. The patient was started on Levaquin 750 mg once daily and clindamycin 450 mg by mouth 3 times a day for pneumonia with possible aspiration. We'll await sputum culture results. At cultures were obtained and are pending. We'll continue breathing treatments and encourage incentive spirometer. ABG does not show CO2 retention. The patient will likely need O2 at 2 L at night at discharge. He will need a formal sleep evaluation with a intensive care unit registered nurse after discharge. Plan - 05/19/17 Some improvement in pulmonary status. Continue Levaquin/Clindamycin. Continue nebs, O2. He will need overnoc oximetry prior to dismissal and outpatient f/u for possible sleep apnea. Flu A/B is negative. Continue I.S. Continue lisinopril for HTN. Monitor, may need to add a diuretic if continues. PRN laxatives pre surgery team. Consider adding LMWH to SCDs given morbid obesity. Repeat labs in AM. 05/20/2017 POD #4 Hypoxia continues, may need home O2. Currently on IV Levaquin and Cleocin, will change to PO for discharge at hospitalist discretion. Cardiac arrhythmia yesterday, Dr. Swenson has been consulted. Surgically he is doing well, except no BM yet in spite of Mirilax daily and dulcolax last week. Will get a little more aggressive with bowel stimulation today.
--- NOTE | 2017-05-20 16:06 | Cardiology Consult Note ---
<Carlene Tran - Last Filed: 05/21/17 10:44> History of Present Illness Consult date: 05/20/17 Requesting physician: Kingsley Mendieta Chief complaint: VTach History of present illness: Bashir is a 37-year-old patient of Dr. Cindy Bravo who underwent elective robotic-assisted laparoscopic ventral herniorrhaphy with mesh placement on by Dr. Grullon. Since his surgery, he has had acute respiratory failure with hypoxia and tachypnea requiring oxygen supplementation at 2L. He reports that prior to his surgery, he and all of his family members had battled a "cold " with mild cough and congestion off and on over the past couple of months. He also admits to self-diagnosed sleep apnea but does not use oxygen or CPAP at home. Surgery reports that he was a very difficult intubation in light of his morbid obesity, placing him at significant risk for respiratory complications. CXR was obtained on 05/16/17 and revealed hypoinflation with bibasilar airspace disease which could represent atelectasis or pneumonia. Labs on 05/17/17 revealed leukocytosis with WBC at 12.3. Ambulatory oximetry revealed hypoxia with oximetry as low as 85% on room air, which improved with 2L NC and rest. Due to his persistent respiratory failure with hypoxia and leukocytosis, the hospitalist service was consulted for further evaluation and medical management. Overnight he had 9 beat of what appeared V tach reported by nursing. He was asymptomatic and is becoming anxious to discharge soon, perhaps today if he can. He denies significant cardiac history. Review of Systems - Constitutional Constitutional: Absent: chills, fatigue, fever(s) - EENMT Eyes: Absent: change in vision Balance: Absent: vertigo Mouth/Throat: Absent: sore throat - Cardiovascular Cardiovascular: Present: dyspnea on exertion. Absent: chest pain, palpitations , syncope Vascular: Absent: pedal edema - Respiratory Respiratory: Present: cough, dyspnea on exertion - Gastrointestinal Gastrointestinal: Absent: abdominal pain, constipation, diarrhea, nausea, vomiting - Genitourinary Genitourinary: Absent: dysuria [facility] Patient Stated Medical History Hypertension Yes: NO MEDS TAKEN Sleep Apnea Yes Other Musculoskeletal Yes: POSS CARPAL TUNNEL ON LEFT HAND Substance Use Disorder Yes: IN REMISSION; MARIJUANA AND METHAMPHETAMINE Clinic Medical History (Last Updated 04/17/17 @ 15:22 by Susan Shin APRN) Drug addiction in remission (Acute Medical) HTN (hypertension) (Acute Medical) Obesity (Acute Medical) Surgical History: Appendectomy - ~1987. Right knee scope - ~1997. Umbilical hernia repair - 05/24/2013. Ventral hernia repair - 05/16/17, Dr. Grullon. Family History: Family History (Last Updated 04/17/17 @ 15:27 by Susan Shin APRN) Mother Diabetes HTN (hypertension) Heart disease Father HTN (hypertension) - Social History Smoking status: Former smoker (quit 1 years ago) Substance use type: does not use Alcohol intake frequency: does not drink Housing: house Household members: spouse Current occupational status: employed Does patient use chewing tobacco?: No Current residence: Apartment/Private Home Medications Allergies Allergy/AdvReac Type Severity Reaction Status Date / Time naproxen Allergy Severe RASH Verified 05/18/17 19:50 Penicillins Allergy Unknown RASH Verified 05/18/17 19:50 Exam Vital signs: Temperature 98.1 F 05/20/17 12:36 Pulse Rate 103 H 05/20/17 12:36 Respiratory Rate 18 05/20/17 15:23 Blood Pressure 133/70 05/20/17 12:36 Pulse Oximetry 94 05/20/17 12:36 - Constitutional no acute distress, obese, cooperative - Routine HEENT Exam Head: Present: normocephalic ENT: Present: mucous membranes moist - Routine Neck Exam Absent: JVD, carotid bruit - Routine Chest/Breast/Axilla Exam Chest wall: Absent: tenderness - Routine Respiratory Exam Present: decreased breath sounds, CTA bilaterally - Routine Cardiovascular Exam Present: RRR, no murmur - Routine Abdominal Exam Present: soft, normoactive bowel sounds - Routine Skin Exam Present: intact, dry, warm - Routine Neurological Exam Present: alert, oriented X3 - Routine Psychiatric Exam Present: normal affect, normal thought process Results 05/20/17 05:10 05/20/17 05:10 CBC 05/20/17 Range/Units 05:10 WBC 10.2 (4.5-11.0) T/MM3 RBC 4.38 L (4.50-5.90) M/MM3 Hgb 12.5 L (13.5-17.5) GM/DL Hct 38.9 L (41-53) % Plt Count 246 (130-400) T/MM3 Neut # (Auto) 7.0 (1.8-7.7) T/MM3 Lymph # (Auto) 2.0 (1-4.8) T/MM3 [place] # (Auto) 0.8 (0-0.8) T/MM3 Eos # (Auto) 0.3 (0-0.5) T/MM3 Baso # (Auto) 0.0 (0-0.2) T/MM3 Comprehensive Metabolic Panel 05/20/17 Range/Units 05:10 Sodium 139 (134-144) MEQ/L Potassium 4.6 (3.6-5) MEQ/L Chloride 100 (98-107) MEQ/L Carbon Dioxide 30 (22-30) MEQ/L BUN 11.0 (9-20) MG/DL Creatinine 0.9 (0.8-1.5) MG/DL Glucose 108 (75-110) MG/DL Calcium 9.0 (8.4-10.2) MG/DL Intake and Output 05/20/17 05/20/17 05/20/17 06:59 14:59 22:59 Intake Total 240 / 240 240 / 240 Balance 240 / 240 240 / 240 Intake: Oral 240 / 240 240 / 240 Other: Stool Color Brown Stool Consistency Soft Formed Size of Bowel Movement Moderate # Voids 1 # Bowel Movements 1 Weight 351 lb 6.669 oz Patient Weight 05/21/17 06:59 Weight 351 lb 6.669 oz - Imaging and Cardiology Imaging & Cardiology Narrative: Patient: Bashir Clark MR#: [id number] : 1980 Age/Sex: 37 / M ADM Date: 05/18/17 Loc: [facility] 134-P DIS Date: 05/20/17 = = = = = = = = = = = = = = = = = = = = = = = = = = = = = = = = = = = = = = = = = = = = = = = = = = = = = = = = = = = Date of Exam: 05/20/17 Type of Exam(s): US echo doppler complete DATE OF PROCEDURE: May 20, 2017 REFERRING PHYSICIAN: Dr. Ken Grullon This is a two-dimensional echo with spectral Doppler, color-flow and M-mode. It was obtained in a patient with ventricular tachycardia. Left atrial dimension is normal. Left ventricular end-diastolic dimension is normal. Left ventricle wall thickness is normal. LV systolic function is normal with ejection fraction of 70%. Right atrium is normal. Right ventricle is normal. Aortic root dimension is normal. Mitral, aortic, tricuspid, pulmonary valves are morphologically normal with trace of tricuspid regurgitation with normal estimated pulmonary artery systolic pressure of 28. There is no pericardial effusion. IMPRESSION 1. Essentially normal echo. 05/21/17 10:44 Assessment and Plan - Assessment and Plan (1) Acute respiratory failure with hypoxia and hypercapnia Status: Resolved (2) Obesity, morbid (more than 100 lbs over ideal weight or BMI > 40) Status: Chronic (3) Status post hernia repair Status: Acute (4) Ventricular tachycardia seen on tanning wheel operator Status: Acute Likely due to respiratory/ hypoxia - EKG now - Echocardiogram normal per orin Galindo to discharge with outpatient follow up - Follow up with Dr. Swenson in 2 weeks in the clinic on Saturday06/05/17 at 1000 - Assessment and Plan 05/20/17 Likely due to respiratory/ hypoxia - EKG now - Echocardiogram normal per orin Galindo to discharge with outpatient follow up - Follow up with Dr. Swenson in 2 weeks in the clinic on Saturday06/05/17 at 1000 Thank you for allowing us to participate in the care of this patient Hospital Course Summary Disclaimer: The visit summary below is not to be considered part of the above Progress Note. Hospital Course: Pain not well controlled with [place], will switch to Percocet 7.5. MiraLAX daily. Rough wet cough and rales bilateral bases, will get CXR and breathing treatment , binder loosened. He plans on seeking sleep study after discharge. At this point does not seem interested in weight loss. If improves over the next 6 hours, he might be able to be discharged today. Plan - 05/18/17 Hospitalist service consulted for medical management and further evaluation of acute post-op respiratory failure with hypoxia and hypercapnia. Patient meeting severe sepsis criteria. Will obtain blood cultures x 2 and serial lactates. Initiate Levaquin 750mg IV daily for suspected aspiration pneumonia. Monitor WBC as it is trending up - currently 13.1. Initial exam reveals course lung sounds in right lower lung. Ambulatory oximetry revealed hypoxia on room air as low as 85% and improved with 2L O2 and rest. CXR on 05/16 concerning for bibasilar atelectasis vs. pneumonia. Sputum culture obtained with results pending. Continue to monitor culture results. Continue supplemental oxygen to maintain SAO2 >90%, weaning as able. Continue to encourage incentive spirometry for pulmonary toileting. DuoNeb treatments for dyspnea. Mucinex for mucolytic effect. Ricola and tessalon perles for cough PRN. Continue to monitor closely on telemetry with continuous pulse oximetry. Blood pressure noted to be elevated. History of hypertension without current blood pressure medications. GFR stable. In light of diabetes, will initiate lisinopril 10mg daily and continue to monitor closely. SCDs for DVT prophalyxis. Encourage ambulation with assistance as able. Upon discharge, patient's care will be returned to his PCP, Dr. Bravo. Appreciate the opportunity to assist in the care provided. 05/18/2017-9 PM-Dr. Bull-I reviewed this chart, the patient history, and the PUMP MACHINE OPERATOR's/PA's documented findings as above. We discussed and formulated the assessment and plan as above with the additions below. I saw the patient this afternoon in his room. He did have a productive cough. He states he's had green yellow phlegm. This started after surgery. He apparently had a difficult intubation and required suctioning and bagging before intubation and then required suctioning after he was extubated. We were consulted today for hypoxia. He is requiring 1-2 L of oxygen. ABG reveals a pH of 7.45, PCO2 38, PO2 of 65 on 1 L. Lactate was normal 2. Influenza A and B are negative. Rhinovirus is negative. He had an overnight oximetry last night and requires 2 L of oxygen. This afternoon he states he's feeling sweaty and has had a temperature of around 100.5. He's had some mild tachycardia. He is not orthostatic. He states he does snore loudly at night and sometimes wakes up gasping for air. He thinks he likely has sleep apnea. He has never been tested for sleep apnea. He rates his pain in his abdomen postoperatively to be about a 3 currently In general this is a well-developed, overweight male in no acute distress. He is mildly diaphoretic. HEENT reveals sclerae to be anicteric and pupils are equal. Oropharynx is moist. Neck is supple. Chest reveals some mild rhonchi in the bases. Cardiovascular reveals a regular rate and rhythm. Abdomen is soft with some tenderness to palpation. Bowel sounds are present. Extremities are free of edema. I have viewed the chest x-ray and he does appear to have bibasilar infiltrates. Impression Acute hypoxic respiratory failure Bibasilar infiltrates with concerns for aspiration just pre-and post extubation. Possible aspiration pneumonia. Possible severe sepsis with normal lactates. Probable obstructive sleep apnea. Morbid obesity. Postop day 2 status post hernia repair Plan The patient was given IV fluids. He was not orthostatic. Lactates were normal. IV fluids were then discontinued. The patient was started on Levaquin 750 mg once daily and clindamycin 450 mg by mouth 3 times a day for pneumonia with possible aspiration. We'll await sputum culture results. At cultures were obtained and are pending. We'll continue breathing treatments and encourage incentive spirometer. ABG does not show CO2 retention. The patient will likely need O2 at 2 L at night at discharge. He will need a formal sleep evaluation with a molding supervisor after discharge. Plan - 05/19/17 Some improvement in pulmonary status. Continue Levaquin/Clindamycin. Continue nebs, O2. He will need overnoc oximetry prior to dismissal and outpatient f/u for possible sleep apnea. Flu A/B is negative. Continue I.S. Continue lisinopril for HTN. Monitor, may need to add a diuretic if continues. PRN laxatives pre surgery team. Consider adding LMWH to SCDs given morbid obesity. Repeat labs in AM. 05/20/2017 POD #4 Hypoxia continues, may need home O2. Currently on IV Levaquin and Cleocin, will change to PO for discharge at hospitalist discretion. Cardiac arrhythmia yesterday, Dr. Swenson has been consulted. Surgically he is doing well, except no BM yet in spite of Mirilax daily and dulcolax last week. Will get a little more aggressive with bowel stimulation today. <Ovi Swenson - Last Filed: 05/22/17 13:34> [facility] Patient Stated Medical History Hypertension Yes: NO MEDS TAKEN Sleep Apnea Yes Other Musculoskeletal Yes: POSS CARPAL TUNNEL ON LEFT HAND Substance Use Disorder Yes: IN REMISSION; MARIJUANA AND METHAMPHETAMINE Clinic Medical History (Last Updated 04/17/17 @ 15:22 by Susan Shin APRN) Drug addiction in remission (Acute Medical) HTN (hypertension) (Acute Medical) Obesity (Acute Medical) Family History: Family History (Last Updated 04/17/17 @ 15:27 by Susan Shin APRN) Mother Diabetes HTN (hypertension) Heart disease Father HTN (hypertension) Exam Vital signs: Temperature 99.1 F 05/20/17 16:08 Pulse Rate 84 05/20/17 16:20 Respiratory Rate 16 05/20/17 16:08 Blood Pressure 132/80 05/20/17 16:08 Pulse Oximetry 94 05/20/17 16:08 Results 05/20/17 05:10 05/20/17 05:10 Assessment and Plan - Attestation Attestation Narrative: 05/22/17 13:34 Recommendation After examining the patient I agree with the above assessment. I am involved in the formulation of the patient's plan of care. - Assessment and Plan (1) Obesity, morbid (more than 100 lbs over ideal weight or BMI > 40) Status: Chronic (2) Status post hernia repair Status: Acute (3) Acute respiratory failure with hypoxia and hypercapnia Status: Resolved (4) Ventricular tachycardia seen on tanning wheel operator Status: Acute Hospital Course Summary Disclaimer: The visit summary below is not to be considered part of the above Progress Note.
[2017-05-20 16:08] VITALS: BP 132/80; RESP 16; TEMP 99.1
[2017-05-20 16:43] VITALS: PULSE 84
--- NOTE | 2017-05-20 16:51 | Discharge Summary ---
Discharge Information Date of admission: 05/18/17 09:23 Attending Physician: Ken Grullon MD Primary care physician: Cindy Bravo APRN Consults: 05/16/17 12:02 Consult to Anesthesiology [CONS] Routine Reason For Exam: hernia 05/18/17 10:17 Physician Consult [CONS] Routine Consulting Provider: Tala Bull Reason For Exam: Hypoxia Ordering Provider has Notified Linen Attendant: Yes 05/20/17 15:21 Physician Consult [CONS] Routine Consulting Provider: Ovi Swenson Reason For Exam: v-tach Ordering Provider has Notified Linen Attendant: Yes - Discharge Diagnosis (1) Obesity, morbid (more than 100 lbs over ideal weight or BMI > 40) Status: Chronic (2) Status post hernia repair Status: Acute (3) Acute respiratory failure with hypoxia and hypercapnia Status: Resolved (4) Chronic respiratory failure with hypoxia Status: Acute - Laboratory Labs: 05/20/17 05:10 05/20/17 05:10 - Microbiology Microbiology 05/18/17 12:30 Peripheral/Iv Start Blood Culture - Preliminary No Growth After 2 Days 05/18/17 12:27 Peripheral/Iv Start Blood Culture - Preliminary No Growth After 2 Days 05/18/17 09:27 Sputum, Expectorated Gram Stain - Final 05/18/17 09:27 Sputum, Expectorated Sputum Culture - Final Haemophilus influenzae Normal Respiratory Mabel Objective Vital signs: Temperature 99.1 F 05/20/17 16:08 Pulse Rate 84 05/20/17 16:20 Respiratory Rate 16 05/20/17 16:08 Blood Pressure 132/80 05/20/17 16:08 Pulse Oximetry 94 05/20/17 16:08 Height/Weight/BMI: Height 5 ft 11 in Weight 159.4 kg Body Mass Index 48.4 - Constitutional Present: well nourished, well developed - Routine HEENT Exam Eye: Present: EOMI ENT: Present: mucous membranes moist, dentition normal - Routine Respiratory Exam Present: CTA bilaterally. Absent: wheezes - Routine Cardiovascular Exam Present: RRR. Absent: murmur - Routine Abdominal Exam Present: soft, normoactive bowel sounds, non distended. Absent: tenderness - Routine Extremities Exam Present: normal capillary refill - Routine Skin Exam Present: dry, warm - Routine Neurological Exam Present: alert, oriented X3, CN II-XII intact - Routine Lymphatic Exam Lymphatic: Absent: adenopathy - Routine Psychiatric Exam Present: normal affect Hospital Course This is a general summary of the patient's hospital course. For more details refer to the complete medical record. Hospital course: Pain not well controlled with [place], will switch to Percocet 7.5. MiraLAX daily. Rough wet cough and rales bilateral bases, will get CXR and breathing treatment , binder loosened. He plans on seeking sleep study after discharge. At this point does not seem interested in weight loss. If improves over the next 6 hours, he might be able to be discharged today. Plan - 05/18/17 Hospitalist service consulted for medical management and further evaluation of acute post-op respiratory failure with hypoxia and hypercapnia. Patient meeting severe sepsis criteria. Will obtain blood cultures x 2 and serial lactates. Initiate Levaquin 750mg IV daily for suspected aspiration pneumonia. Monitor WBC as it is trending up - currently 13.1. Initial exam reveals course lung sounds in right lower lung. Ambulatory oximetry revealed hypoxia on room air as low as 85% and improved with 2L O2 and rest. CXR on 05/16 concerning for bibasilar atelectasis vs. pneumonia. Sputum culture obtained with results pending. Continue to monitor culture results. Continue supplemental oxygen to maintain SAO2 >90%, weaning as able. Continue to encourage incentive spirometry for pulmonary toileting. DuoNeb treatments for dyspnea. Mucinex for mucolytic effect. Ricola and tessalon perles for cough PRN. Continue to monitor closely on telemetry with continuous pulse oximetry. Blood pressure noted to be elevated. History of hypertension without current blood pressure medications. GFR stable. In light of diabetes, will initiate lisinopril 10mg daily and continue to monitor closely. SCDs for DVT prophalyxis. Encourage ambulation with assistance as able. Upon discharge, patient's care will be returned to his PCP, Dr. Bravo. Appreciate the opportunity to assist in the care provided. 05/18/2017-9 PM-Dr. Bull-I reviewed this chart, the patient history, and the INSTITUTION LIBRARIAN's/PA's documented findings as above. We discussed and formulated the assessment and plan as above with the additions below. I saw the patient this afternoon in his room. He did have a productive cough. He states he's had green yellow phlegm. This started after surgery. He apparently had a difficult intubation and required suctioning and bagging before intubation and then required suctioning after he was extubated. We were consulted today for hypoxia. He is requiring 1-2 L of oxygen. ABG reveals a pH of 7.45, PCO2 38, PO2 of 65 on 1 L. Lactate was normal 2. Influenza A and B are negative. Rhinovirus is negative. He had an overnight oximetry last night and requires 2 L of oxygen. This afternoon he states he's feeling sweaty and has had a temperature of around 100.5. He's had some mild tachycardia. He is not orthostatic. He states he does snore loudly at night and sometimes wakes up gasping for air. He thinks he likely has sleep apnea. He has never been tested for sleep apnea. He rates his pain in his abdomen postoperatively to be about a 3 currently In general this is a well-developed, overweight male in no acute distress. He is mildly diaphoretic. HEENT reveals sclerae to be anicteric and pupils are equal. Oropharynx is moist. Neck is supple. Chest reveals some mild rhonchi in the bases. Cardiovascular reveals a regular rate and rhythm. Abdomen is soft with some tenderness to palpation. Bowel sounds are present. Extremities are free of edema. I have viewed the chest x-ray and he does appear to have bibasilar infiltrates. Impression Acute hypoxic respiratory failure Bibasilar infiltrates with concerns for aspiration just pre-and post extubation. Possible aspiration pneumonia. Possible severe sepsis with normal lactates. Probable obstructive sleep apnea. Morbid obesity. Postop day 2 status post hernia repair Plan The patient was given IV fluids. He was not orthostatic. Lactates were normal. IV fluids were then discontinued. The patient was started on Levaquin 750 mg once daily and clindamycin 450 mg by mouth 3 times a day for pneumonia with possible aspiration. We'll await sputum culture results. At cultures were obtained and are pending. We'll continue breathing treatments and encourage incentive spirometer. ABG does not show CO2 retention. The patient will likely need O2 at 2 L at night at discharge. He will need a formal sleep evaluation with a boat captain after discharge. Plan - 05/19/17 Some improvement in pulmonary status. Continue Levaquin/Clindamycin. Continue nebs, O2. He will need overnoc oximetry prior to dismissal and outpatient f/u for possible sleep apnea. Flu A/B is negative. Continue I.S. Continue lisinopril for HTN. Monitor, may need to add a diuretic if continues. PRN laxatives pre surgery team. Consider adding LMWH to SCDs given morbid obesity. Repeat labs in AM. 05/20/2017 POD #4 Hypoxia continues, may need home O2. Currently on IV Levaquin and Cleocin, will change to PO for discharge at hospitalist discretion. Cardiac arrhythmia yesterday, Dr. Swenson has been consulted. Surgically he is doing well, except no BM yet in spite of Mirilax daily and dulcolax last week. Will get a little more aggressive with bowel stimulation today. Time spent with patient: greater than 35 minutes Resuscitation Status: Full Code Discharge Plan - Discharge Disposition Disposition: Discharged Home, Self-Care *Condition: Stable Reason For Visit (Visit label in EMR): Ventral hernia repair K43.6 - Discharge Medications *Discharge Medications: New PEG 3350 17gm PACKET [Miralax] 17 gm PO DAILY packet Ibuprofen [Motrin] 600 mg PO Q6H PRN tab PRN Reason: Pain Levofloxacin [Levaquin] 750 mg PO ACL #7 tab Oxycodone/Apap 7.5/325 [Percocet 7.5/325] 1 - 2 tab PO Q4H PRN #30 tab PRN Reason: Pain Clindamycin [Cleocin] 450 mg PO TID #15 cap - Discharge Packet/Instructions *Diet: regular *Activity: Do not drive, operate machinery for 24 hours after surgery or while taking pain medication. No lifting more than 25 pounds for 4 weeks. *Pain Management/Treatment: Follow prescriptions as prescribed *Wound Care: Leave incision open to air. *Expected Signs/Symptoms: tenderness and bruising at incision sites. *Notify Physician if: 1. Call your surgeon if you are having problems relating to your surgery at [phone]. 2. Problems such as: Temp above 101.5 degrees. You develop redness, excessive swelling of the incision, increasing pain or excessive foul smelling drainage. 3. If the office is closed, call [facility] at [phone] and have your Surgeon paged. *During Business Hours Contact: Call your surgeon at at [phone]. *After Business Hours Contact: If the office is closed, call [facility] at [phone] and have your Surgeon paged. *Pending Lab/Results: No Pending Lab - Referrals/Follow Up *Referrals/Follow Up: Susan Shin, INSTITUTION LIBRARIAN [Advanced Practice Nurse] - 06/04/17 (call the office for time that has already been scheduled.) - Patient Handouts Physician Narrative - Narrative Attestation Narrative: Date: 05/20/17 Time: 9227
--- NOTE | 2017-05-21 08:35 | Echocardiogram ---
DATE OF PROCEDURE: May 20, 2017 REFERRING PHYSICIAN: Dr. Ken Grullon This is a two-dimensional echo with spectral Doppler, color-flow and M-mode. It was obtained in a patient with ventricular tachycardia. Left atrial dimension is normal. Left ventricular end-diastolic dimension is normal. Left ventricle wall thickness is normal. LV systolic function is normal with ejection fraction of 70%. Right atrium is normal. Right ventricle is normal. Aortic root dimension is normal. Mitral, aortic, tricuspid, pulmonary valves are morphologically normal with trace of tricuspid regurgitation with normal estimated pulmonary artery systolic pressure of 28. There is no pericardial effusion. IMPRESSION 1. Essentially normal echo. MTDD
== END 2017-05-20 17:25 | disposition home or self-care (01) | DRG 853 ==
LOC: SUR 11:46 → SRG 11:54 → NMC.PERIOP 11:54 → SUR 20:12 → SRG 20:13
PROVIDERS: ADMIT Surgery; ATTEND Surgery